=== PATIENT | female | born 1995 | race Caucasian/White ===

== ENCOUNTER 2018-04-15 19:24 | Emergency (ER) | payer OTHER, SELFPAY ==
[2018-04-15 19:29] VITALS: BP 141/83; PULSE 82; RESP 100; TEMP 36.6; O2SAT 100; BMI 38.5
--- NOTE | 2018-04-15 19:46 | ED.DENTAL ---
HPI - Dental/Oral <MITCH Noguera - Last Filed: 04/15/18 22:03> General Chief complaint: Dental/Oral Stated complaint: has TMJ, shooting pain in rt side of jaw, rt ear p Time Seen by Provider: 04/15/18 19:26 Source: patient Mode of arrival: ambulatory Limitations: no limitations History of Present Illness HPI Narrative: 23-year-old female with history of hypertension and is a nonsmoker here for complaint of pain into her right TMJ area over the past day. She denies any trauma to the area. She states she has a history of having TMJ disorder. She says she woke up with the pain. Increased pain with movement of the TMJ joint. She denies any tooth pain. She denies any pain into the inner oral area or to the gums. Pain is limited to the TMJ area. No fevers no chills. No other concerns or complaints at this time. Related Data Home Medications Medication Instructions Recorded Confirmed etonogestrel-ethinyl estradiol 1 icr VAGINAL #0 11/14/15 [NuvaRing] clonazepam 0.25 mg PO BID #0 10/07/16 multivitamin [Multiple Vitamins] 1 tab PO QDAY #0 10/07/16 nadolol [Corgard] 20 mg PO QPM #0 10/07/16 omega 6-bar-xpu-fish oil [Fish Oil] QDAY #0 10/07/16 paroxetine HCl [Paxil] 20 mg PO QPM #0 10/07/16 Allergies Allergy/AdvReac Type Severity Reaction Status Date / Time Latex, Natural Rubber AdvReac Mild Verified 04/15/18 19:32 Review of Systems <MITCH Noguera - Last Filed: 04/15/18 22:03> Constitutional Denies chills, Denies fever(s), Denies lethargy and Denies weakness Eyes Denies change in vision, Denies eye discharge, Denies irritation and Denies loss of vision ENT Comments: TMJ pain Cardiovascular Denies chest pain, Denies irregular heart rhythm, Denies lightheadedness, Denies palpitations, Denies dyspnea, Denies dyspnea on exertion and Denies orthopnea Respiratory Denies cough, Denies dyspnea, Denies dyspnea on exertion and Denies wheezing Gastrointestinal Gastrointestinal: Denies abdominal pain, Denies change in bowel habits, Denies diarrhea, Denies nausea and Denies vomiting Genitourinary Denies hematuria, Denies flank pain, Denies urinary incontinence and Denies urinary urgency Musculoskeletal Denies back pain, Denies muscle weakness, Denies numbness and Denies tingling Integumentary/Breasts Denies pruritus, Denies erythema, Denies rash and Denies wounds Neurologic Denies confusion, Denies loss of vision, Denies numbness, Denies tingling and Denies weakness Psychiatric Denies anxiety, Denies confusion, Denies depression, Denies homicidal ideation and Denies suicidal ideation Endocrine Denies palpitations Hematologic/Lymphatic Denies easy bruising Allergic/Immunologic Denies wheezing Exam <MITCH Noguera - Last Filed: 04/15/18 22:03> Initial Vital Signs Initial Vital Signs: Vital Signs Temperature 97.9 F 04/15/18 19:29 Pulse Rate 82 04/15/18 19:29 Respiratory Rate 100 H 04/15/18 19:29 Blood Pressure 141/83 H 04/15/18 19:29 Pulse Oximetry 100 04/15/18 19:29 Const General: cooperative and well developed Nutritional Appearance: well nourished Orientation: alert, awake, oriented x3 and not confused HENMT Face and sinus: tenderness (Tenderness on palpation to the right TMJ area. No clicking on opening and closing of the jaw. No signs of trauma. No erythema no swelling.) Mouth: oral mucosae normal and moist mucous membranes Teeth and gingiva: dentition normal and gingiva normal Throat: posterior oropharynx normal Eyes Conjunctivae: conjunctivae normal Sclera: sclerae normal Pupils: PERRL EOM: EOM intact bilaterally Chest Chest: normal inspection of the chest Resp Effort & Inspection: normal respiratory effort, able to speak in complete sentences, no respiratory distress and no use of accessory muscles Auscultation: clear to auscultation bilaterally, no rales, no rhonchi and no wheezes Cardio Rate: regular rate Rhythm: regular rhythm Heart Sounds: no click, no gallops, no murmurs and no rubs Pulses: normal peripheral pulses Skin General: no rashes or lesions noted, No jaundice and No petechiae Neuro General: alert, oriented x3, gait normal and no focal motor deficits Speech: speech normal Extrem General: full ROM, no clubbing, cyanosis or edema, no pedal edema and no calf tenderness <Sneha Galvan DO - Last Filed: 04/16/18 01:44> Initial Vital Signs Initial Vital Signs: Vital Signs Temperature 97.9 F 04/15/18 19:29 Pulse Rate 82 04/15/18 19:29 Respiratory Rate 100 H 04/15/18 19:29 Blood Pressure 141/83 H 04/15/18 19:29 Pulse Oximetry 100 04/15/18 19:29 Course <MITCH Noguera - Last Filed: 04/15/18 22:03> Vital Signs - 8 hr 04/15/18 19:29 Temperature 97.9 F Pulse Rate 82 Respiratory Rate 100 H Blood Pressure 141/83 H Pulse Oximetry 100 <DO Percy Kaba Last Filed: 04/16/18 01:44> Vital Signs - 8 hr 04/15/18 19:29 Temperature 97.9 F Pulse Rate 82 Respiratory Rate 100 H Blood Pressure 141/83 H Pulse Oximetry 100 MDM - Dental/Oral <MITCH Noguera - Last Filed: 04/15/18 22:03> MDM Narrative Medical decision making narrative: Signs and symptoms presents as a summation of a TMJ disorder. [id number] ibuprofen as needed for any discomfort. Rest drawn area by using soft foods. Follow up with dentist or ENT may call ENT office at number provided to schedule follow-up appointment. Discussed case with Dr. Villarreal ENT that their offices can follow up with her and that the office may decided to order physical therapy. For any worsening symptoms return emergency room Discharge Plan Departure Patient Disposition: Home Clinical Impression: TMJ arthralgia Discharge Date/Time: 04/15/18 20:35 Interventions: ED Discharge Assessment Last Done: 04/15/18 20:34 Instructions: TMJ Syndrome (Alternative Therapy) Activity Restrictions/Additional Instructions: Signs and symptoms presents as exacerbation of TMJ disorder. Use soft foods to limit agitation to the right TMJ joint. Use [id number] ibuprofen as needed for any discomfort. Follow up with your dentist or may follow up with ENT may call ENT office at number provided to schedule follow-up appointment. For any worsening symptoms return to the emergency room. Prescriptions: No Action etonogestrel-ethinyl estradiol [NuvaRing] 1 EACH ring 1 icr Vaginal Qty: 0 RF: 0 clonazepam 0.5 MG tablet 0.25 mg PO BID Qty: 0 RF: 0 nadolol [Corgard] 20 MG tablet 20 mg PO QPM Qty: 0 RF: 0 paroxetine HCl [Paxil] 20 MG tablet 20 mg PO QPM Qty: 0 RF: 0 multivitamin [Multiple Vitamins] 1 EACH tablet 1 tab PO QDAY Qty: 0 RF: 0 omega 7-ocu-jcj-fish oil [Fish Oil] 1,000 mg (120 mg-180 mg) Capsule QDAY Qty: 0 RF: 0 Referrals: Boy Villarreal MD [Physician] - Bandar Cade MD [Primary Care Provider] - <Sneha Galvan DO - Last Filed: 04/16/18 01:44> Cosign ED Attending Malaikaature Attestation: I was immediately available in the department for consultation. Documentation has been reviewed. I agree with assessment and plan.
== END 2018-04-15 20:35 | disposition home or self-care (01) ==
PROVIDERS: Emergency Provider Nurse Practitioner Family; PCP Family Medicine
DX: M26.629 Arthralgia of temporomandibular joint, unspecified side (principal)
CPT/HCPCS: 99282